=== PATIENT | female | born 1985 | race Caucasian/White ===

== ENCOUNTER 2017-10-18 20:47 | Inpatient (IN) | END 2017-10-21 12:35 | disposition home or self-care (01) | DRG 418 ==

== ENCOUNTER 2018-10-22 11:09 | Emergency (ER) | payer OTHER ==
[~2018-10-22] VITALS: Ht 160 cm; Wt 83.6 kg
[~2018-10-22 11:09] MED LIST: CYCL10TA7 PO; DOCU-144 PO; IBUP-1542 PO; OXYC-438 PO
[2018-10-22 11:19] VITALS: Ht 160 cm; Wt 83.6 kg
[2018-10-22] MEDS ORDERED: KETOROLAC 30 MG INJ IM STA (11:45)
[2018-10-22 14:22] VITALS: BP 109/71; PULSE 60; RESP 18
== END 2018-10-22 14:16 | disposition home or self-care (01) ==
LOC: FTE 11:09
DX: S63.501A Unspecified sprain of right wrist, initial encounter (principal); F17.210 Nicotine dependence, cigarettes, uncomplicated; S13.4XXA Sprain of ligaments of cervical spine, initial encounter; M62.830 Muscle spasm of back; V49.49XA Driver injured in collision with other motor vehicles in traffic accident, initial encounter
CPT/HCPCS: 29125; 72100; 73030; 73080; 73090; 73110; 81025; 96372; 99284; J1885